=== PATIENT | male | born 1995 | race Caucasian/White ===

== ENCOUNTER 2019-01-19 09:48 | Emergency (ER) | payer OTHER, SELFPAY ==
[2019-01-19 09:52] VITALS: BP 137/69; PULSE 95; RESP 16; TEMP 36.8; O2SAT 98
[2019-01-19] MEDS: Tetracaine 0.5% 4 ML BTL (10:08)
[2019-01-19] MEDS: Balanced Salt Solution 15 ML BTL (10:08)
[2019-01-19] MEDS: Fluorescein STRIPS 100/BOX 1 MG (10:08)
--- NOTE | 2019-01-19 10:57 | W.ED.GENAD ---
Discharge Plan Disposition Patient Disposition: HOME Condition: Good Discharge Details Chief Complaint: EyeProblem Clinical Impression: Foreign body of left eyelid Primary Care Provider: GregoriaLocal ED Provider: Armen Waters Home Meds and New Rx's Prescriptions: Continued loratadine [Claritin] 10 mg Tablet 10 mg PO DAILY PRNRF: 0 Discharge Instructions Instructions: Corneal Abrasion (ED) Additional Instructions: Please use the provided ointment 4 times daily for the next 5 to 7 days. Return to the emergency department for any significant change or symptoms, vision loss, or further concerns. Otherwise follow-up with a dishwasher for reassessment if not improving Discharge Data Discharge Date/Time-TO BE ENTERED AT DEPARTURE: 01/19/19 11:40 Medical Decision Making Patient presenting to the emergency department for chief complaint of foreign body right eye. Patient states that he may have got dust in his left eye yesterday. He noted some photophobia and tearing along with irritation all night long causing him to come to the emergency department for evaluation. Vision is intact and slight photophobia. Physical exam shows no conjunctival injection, no erythema, slit-lamp and Moore light examination with dye showed no obvious foreign body except for some possible dust particles on lower eyelid, otherwise no dye uptake, EOMs intact, no sign of abrasion. I was then irrigated with 500 mL's of saline. Given patient's irritation, photophobia, and small dust like particles on lower eyelid I am still concerned for possible abrasion to the eye which is not apparent or easily identifiable. Patient placed up on erythromycin ointment 4 times daily for the next 5 to 7 days. Patient states that he is up-to-date on tetanus and is not from the area to confirm. Return precautions discussed. After discussion of diagnosis and plan of care patient has no further needs, questions, or concerns and states clear understanding to return to the emergency department for any worsening symptoms. HPI General Mode of arrival: ambulatory. Date/Time Provider Initiated Documentation: 01/19/19 10:03. Limitations to Documentation: no limitations. Information obtained by: patient and RN notes reviewed. History of Present Illness 23 year old M presents to the emergency department with the chief complaint of left eye foreign body, described as mild, with intensity rated at 2. Quality is described as aching, and is localized to the eyes and left. Patient started experiencing this day(s) (1) and it has been constant. No relieving factors improve symptom(s), Patient notes no other symptoms.. Patient did receive the following treatments prior to arrival, other (Irrigation) Related Data Home Medications Medication Instructions Recorded Confirmed loratadine [Claritin] 10 mg PO DAILY PRN 01/19/19 01/19/19 Allergies Allergy/AdvReac Type Severity Reaction Status Date / Time No Known Allergies Allergy Unverified 01/19/19 09:54 General Stated Complaint: EyeProblem WAYNE: 4 Review of Systems Eyes Reports as per HPI, Denies eye discharge, Reports irritation, Denies requires corrective lenses and Reports photophobia ENT Denies nasal congestion and Denies nasal discharge Integumentary/Breasts Denies rash Neurologic Denies sensory deficit [facility] Social History Smoking/Tobacco Use Status: Never Alcohol Intake: current Alcohol Intake frequency: a few times a month Drug use: Never Substance use type: does not use Do you feel safe at home: Yes Do you feel safe in your relationship?: Yes Exam Const General: cooperative, no acute distress and not ill appearing Orientation: alert, awake and oriented x3 HENMT Head: atraumatic Mouth: moist mucous membranes Eyes Alignment and Position: alignment normal Periorbital: periorbital findings normal Eyelids: eyelid abnormality left lower eyelid foreign body (question of dust particles) Conjunctivae: conjunctivae normal Sclera: sclerae normal Cornea: corneas normal and fluorescein used Pupils: PERRL, normal by confrontation and accommodation normal EOM: EOM intact bilaterally Resp Effort & Inspection: normal respiratory effort, able to speak in complete sentences and no respiratory distress Course Vital Signs Temperature 36.8 C 01/19/19 09:52 Pulse 95 H 01/19/19 09:52 Respiratory Rate 16 01/19/19 09:52 Blood Pressure 137/69 01/19/19 09:52 Pulse Oximetry 98 01/19/19 09:52 Temperature 36.8 C 01/19/19 09:52 Temperature Source Temporal Artery Scan 01/19/19 09:52 Pulse 95 H 01/19/19 09:52 Respiratory Rate 16 01/19/19 09:52 Respiratory Effort Non-Labored 01/19/19 09:54 Blood Pressure 137/69 01/19/19 09:52 Blood Pressure Position Sitting 01/19/19 09:52 Pulse Oximetry 98 01/19/19 09:52 Oxygen Delivery Method Room Air 01/19/19 09:52 Oxygen Flow Rate 0 01/19/19 09:52 Pain Level 3 01/19/19 09:52
--- NOTE | 2019-01-19 11:01 | ED.GENADUL_ITS ---
Discharge Plan Disposition Patient Disposition: HOME Condition: Good Discharge Details Chief Complaint: EyeProblem Clinical Impression: Foreign body of left eyelid Primary Care Provider: GregoriaLocal ED Provider: Armen Waters Home Meds and New Rx's Prescriptions: Continued loratadine [Claritin] 10 mg Tablet 10 mg PO DAILY PRNRF: 0 Discharge Instructions Instructions: Corneal Abrasion (ED) Additional Instructions: Please use the provided ointment 4 times daily for the next 5 to 7 days. Return to the emergency department for any significant change or symptoms, vision loss, or further concerns. Otherwise follow-up with a barrel rifler hook for reassessment if not improving Discharge Data Discharge Date/Time-TO BE ENTERED AT DEPARTURE: 01/19/19 11:40 Medical Decision Making Patient presenting to the emergency department for chief complaint of foreign body right eye. Patient states that he may have got dust in his left eye yesterday. He noted some photophobia and tearing along with irritation all night long causing him to come to the emergency department for evaluation. Vision is intact and slight photophobia. Physical exam shows no conjunctival injection, no erythema, slit-lamp and Moore light examination with dye showed no obvious foreign body except for some possible dust particles on lower eyelid, otherwise no dye uptake, EOMs intact, no sign of abrasion. I was then irrigated with 500 mL's of saline. Given patient's irritation, photophobia, and small dust like particles on lower eyelid I am still concerned for possible abrasion to the eye which is not apparent or easily identifiable. Patient placed up on erythromycin ointment 4 times daily for the next 5 to 7 days. Patient states that he is up-to-date on tetanus and is not from the area to confirm. Return precautions discussed. After discussion of diagnosis and plan of care patient has no further needs, questions, or concerns and states clear understanding to return to the emergency department for any worsening symptoms. HPI General Mode of arrival: ambulatory . Date/Time Provider Initiated Documentation: 01/19/19 10:03 . Limitations to Documentation: no limitations . Information obtained by: patient and RN notes reviewed . History of Present Illness 23 year old M presents to the emergency department with the chief complaint of left eye foreign body, described as mild, with intensity rated at 2. Quality is described as aching, and is localized to the eyes and left. Patient started experiencing this day(s) (1) and it has been constant. No relieving factors improve symptom(s), Patient notes no other symptoms.. Patient did receive the following treatments prior to arrival, other (Irrigation) Related Data Home Medications Medication Instructions Recorded Confirmed loratadine [Claritin] 10 mg PO DAILY PRN 01/19/19 01/19/19 Allergies Allergy/AdvReac Type Severity Reaction Status Date / Time No Known Allergies Allergy Unverified 01/19/19 09:54 General Stated Complaint: EyeProblem WAYNE: 4 Review of Systems Eyes Reports as per HPI, Denies eye discharge, Reports irritation, Denies requires corrective lenses and Reports photophobia ENT Denies nasal congestion and Denies nasal discharge Integumentary/Breasts Denies rash Neurologic Denies sensory deficit [facility] Social History Smoking/Tobacco Use Status: Never Alcohol Intake: current Alcohol Intake frequency: a few times a month Drug use: Never Substance use type: does not use Do you feel safe at home: Yes Do you feel safe in your relationship?: Yes Exam Const General: cooperative, no acute distress and not ill appearing Orientation: alert, awake and oriented x3 HENMT Head: atraumatic Mouth: moist mucous membranes Eyes Alignment and Position: alignment normal Periorbital: periorbital findings normal Eyelids: eyelid abnormality left lower eyelid foreign body (question of dust particles) Conjunctivae: conjunctivae normal Sclera: sclerae normal Cornea: corneas normal and fluorescein used Pupils: PERRL, normal by confrontation and accommodation normal EOM: EOM intact bilaterally Resp Effort & Inspection: normal respiratory effort, able to speak in complete sentences and no respiratory distress Course Vital Signs Temperature 36.8 C 01/19/19 09:52 Pulse 95 H 01/19/19 09:52 Respiratory Rate 16 01/19/19 09:52 Blood Pressure 137/69 01/19/19 09:52 Pulse Oximetry 98 01/19/19 09:52 Temperature 36.8 C 01/19/19 09:52 Temperature Source Temporal Artery Scan 01/19/19 09:52 Pulse 95 H 01/19/19 09:52 Respiratory Rate 16 01/19/19 09:52 Respiratory Effort Non-Labored 01/19/19 09:54 Blood Pressure 137/69 01/19/19 09:52 Blood Pressure Position Sitting 01/19/19 09:52 Pulse Oximetry 98 01/19/19 09:52 Oxygen Delivery Method Room Air 01/19/19 09:52 Oxygen Flow Rate 0 01/19/19 09:52 Pain Level 3 01/19/19 09:52
[2019-01-19] MEDS: Erythromycin Ophth Oint 3.5 GM TUBE OS (11:40)
== END 2019-01-19 11:40 | disposition home or self-care (01) ==
PROVIDERS: Emergency Provider Nurse Practitioner Family
DX: H02.815 Retained foreign body in left lower eyelid (principal)
CPT/HCPCS: 99283